=== PATIENT | male | born 1970 | race Caucasian/White ===

== ENCOUNTER 2022-10-24 06:54 | Day surgery (SDC) | payer OTHER ==
[~2022-10-24] VITALS: Ht 190.5 cm; Wt 152.0 kg
[2022-10-24] MEDS ORDERED: LIDOCAINE 2% 100 MG/5 ML UJET TP ONE (08:56)
[2022-10-24] MEDS ORDERED: fentaNYL citrate 0.05 MG/ML VIAL ONE (08:57)
[2022-10-24] MEDS ORDERED: fentaNYL citrate 0.05 MG/ML VIAL IVP ONE (09:40)
== END 2022-10-24 09:50 | disposition home or self-care (01) ==
LOC: EDSEX 06:54 → MOR 06:54 → MMU 07:01 → MOR 09:50
PROVIDERS: ATTEND Internal Medicine Gastroenterology
DX: Z12.11 Encounter for screening for malignant neoplasm of colon (principal)
CPT/HCPCS: 45378; J3010